=== PATIENT | female | born 1980 | race Caucasian/White ===

== ENCOUNTER 2017-09-29 18:20 | Outpatient (CLI) | payer OTHER ==
--- NOTE | 2017-09-30 17:31 | XRAY Report ---
EXAM: LUMBOSACRAL SPINE RADIOGRAPHY EXAM DATE: 09/29/2017 07:07 PM. CLINICAL HISTORY: Chronic low back pain. COMPARISONS: None. TECHNIQUE: 2 views. FINDINGS: Alignment: Normal. No spondylolisthesis or scoliosis. Bones: Five [id number] lumbar vertebral bodies are present. No fractures or bone lesions. Disks: Normal. Disk space heights are maintained. Facets: No significant degenerative changes. Sacroiliac Joints: Unremarkable. Soft Tissues: Normal. The visualized bowel gas pattern is normal. IMPRESSION: Normal lumbar spine radiography. [facility] Referring Provider Line: [phone] SITE ID: [id number]
--- NOTE | 2017-09-30 17:32 | XRAY Report ---
EXAM: SKULL RADIOGRAPHY EXAM DATE: 09/29/2017 07:08 PM. CLINICAL HISTORY: Deformity over frontal scalp. Indentation of anterior skull near suture line. No kn own trauma or injury to skull. COMPARISON: None. TECHNIQUE: 3 views. FINDINGS: Bones: No evident fracture or bone lesion. Sinuses: Clear as visualized. No focal opacities or fluid levels. Other: Normal. No soft tissue swelling. IMPRESSION: Normal skull radiography. [facility] Referring Provider Line: [phone] SITE ID: [id number]
== END 2017-09-29 18:21 | disposition home or self-care (01) ==
LOC: DI 18:20
PROVIDERS: ATTEND Internal Medicine
DX: M54.5 Low back pain (principal); R51 Headache
CPT/HCPCS: 70250; 72100

== ENCOUNTER 2018-01-19 08:00 | Outpatient (CLI) | payer OTHER | END 2018-01-19 23:59 | disposition home or self-care (01) | LOC: LAB.R 08:00 | PROVIDERS: ATTEND Nurse Practitioner Obstetrics & Gynecology | DX: N89.8 Other specified noninflammatory disorders of vagina (principal) | CPT/HCPCS: 87480; 87510; 87660 ==

== ENCOUNTER 2020-05-01 07:00 | Outpatient (CLI) | payer OTHER ==
[2020-05-01 21:32] LABS: CANDIDA GROUP DNA NEGATIVE (NEGATIVE); CANDIDA KRUSEI DNA NEGATIVE (NEGATIVE); TRICHOMONAS VAGINALIS DNA NEGATIVE (NEGATIVE)
== END 2020-05-01 23:59 | disposition home or self-care (01) ==
LOC: LAB.R 07:00
PROVIDERS: ATTEND Nurse Practitioner Obstetrics & Gynecology
DX: N76.1 Subacute and chronic vaginitis (principal)
CPT/HCPCS: 87661; 87801

== ENCOUNTER 2021-01-01 13:48 | Outpatient (CLI) | payer OTHER | END 2021-01-01 13:49 | disposition home or self-care (01) | LOC: COV 13:48 | PROVIDERS: ATTEND Otolaryngology Facial Plastic Surgery | DX: Z01.812 Encounter for preprocedural laboratory examination (principal); H71.01 Cholesteatoma of attic, right ear; Z20.822 Contact with and (suspected) exposure to COVID-19 ==

== ENCOUNTER 2021-02-01 17:01 | Outpatient (CLI) | payer OTHER ==
--- NOTE | 2021-02-02 09:20 | XRAY Report ---
PROCEDURE: Finger(s) LT INDICATIONS: LEFT MIDDLE FINGER PAIN TECHNIQUE: AP hand, 2 views of the left middle finger(s) acquired. COMPARISON: None FINDINGS: Bones: No fractures or dislocations. No suspicious bony lesions. Soft tissues: No suspicious soft tissue calcifications. IMPRESSION: No bony abnormality of the right middle finger. Reviewed by: Darinel Cramer on 02/02/2021 9:18 AM PDT Approved by: Darinel Cramer on 02/02/2021 9:18 AM PDT Station ID: [id number]
== END 2021-02-01 17:02 | disposition home or self-care (01) ==
LOC: DI 17:01
PROVIDERS: ATTEND Internal Medicine
DX: M79.645 Pain in left finger(s) (principal)